=== PATIENT | male | born 1975 | race Caucasian/White ===

== ENCOUNTER 2021-01-29 20:55 | Emergency (ER) | payer OTHER ==
[~2021-01-29] VITALS: Ht 172.7 cm; Wt 78.7 kg
[2021-01-29 20:57] VITALS: BP 110/84
--- NOTE | 2021-01-29 21:07 | NUR ---
BIBSELF C/O R KNEE PAIN X3 DAYS -TRAUMA. PATIENT IS AAOX4. NO SOB. BREATHING EVENLY AND UNLABORED. AMULATORY. VSS.
[2021-01-29] MEDS ORDERED: IBUP-1955 PO (22:06)
[2021-01-29] MEDS ORDERED: IBUPROFEN 600 MG TABLET ONE (22:19)
[2021-01-29] MEDS: IBUPROFEN 600 MG TABLET PO ONE (22:29)
--- NOTE | 2021-01-29 22:29 | NUR ---
Patient provided with presciption medication. Verbalizes teaching of medication. Patient understands the acronym R.I.C.E. (rest, ice, compression, and elevate) for knee pain.
--- NOTE | 2021-01-29 22:29 | NUR ---
Patient discharged to home in stable condition. Written and verbal after care instructions given. Patient verbalizes understanding of instruction.
== END 2021-01-29 22:31 | disposition home or self-care (01) ==
LOC: ER 21:00
DX: M25.561 Pain in right knee (principal); R22.41 Localized swelling, mass and lump, right lower limb
CPT/HCPCS: 73564-TC; 93971-TC

== ENCOUNTER 2021-12-16 03:46 | Emergency (ER) | payer OTHER ==
[~2021-12-16] VITALS: Ht 172.7 cm; Wt 79.8 kg
[~2021-12-16 03:46] MED LIST: IBUP-1955 PO
--- NOTE | 2021-12-16 03:58 | NUR ---
BIBRA 889 FROM HOME FOR C/O WORSENING R KNEE PAIN AND SWELLING X 4 DAYS DENIED ANY TRAUMA, FALL OR INJURY. PATIENT ALERT AND ORIENTED X3. IN BED 09 ON MONITOR
[2021-12-16] MEDS ORDERED: KETOROLAC TROMETHAMINE INJ 30 MG/ML VIAL ONE (04:15)
--- NOTE | 2021-12-16 04:21 | NUR ---
BLOOD COLLECTED AND SENT TO LAB
[2021-12-16] MEDS ORDERED: KETOROLAC TROMETHAMINE INJ 30 MG/ML VIAL IV ONE (04:30)
[2021-12-16 04:33] LABS: BASOPHILS % (AUTO) 0.3 % (0.0-2.0); EOSINOPHILS % (AUTO) 5.5 % (0.0-6.0); HEMATOCRIT 42 % (39-51); HEMOGLOBIN 14.8 g/dL (13.5-17.5); LYMPHOCYTES # (AUTO) 1.6 K/uL (0.8-4.8); LYMPHOCYTES % (AUTO) 14.3 % (20.0-44.0); MEAN CORPUSCULAR HGB CONC 35 g/dl (31.0-36.0); MEAN CORPUSCULAR VOLUME 84 fL (80-96); MONOCYTES # (AUTO) 0.5 K/uL (0.1-1.30); MONOCYTES % (AUTO) 4.8 % (2.0-12.0); NEUTROPHILS # (AUTO) 8.5 K/uL (1.8-8.9); NEUTROPHILS % (AUTO) 75.1 % (43.0-81.0); PLATELET COUNT (AUTO) 222 K/uL (150-450); RED BLOOD CELL COUNT(AUTO) 4.99 MIL/uL (4.5-6.0); WHITE BLOOD COUNT (AUTO) 11.4 K/uL (4.3-11.0)
[2021-12-16 05:01] LABS: CALCIUM, SERUM 8.4 mg/dL (8.5-10.1); CREATININE 1.1 mg/dL (0.6-1.3); POTASSIUM 3.8 mmol/L (3.5-5.1)
[2021-12-16] MEDS ORDERED: IBUP-1957 PO (05:11)
--- NOTE | 2021-12-16 05:18 | NUR ---
6 INCH SANDIE WRAP APPLIED TO R KNEE. PMS EQUAL AND INTACT.
--- NOTE | 2021-12-16 05:23 | NUR ---
Patient discharged to home in stable condition. Written and verbal after care instructions given. Patient verbalizes understanding of instruction. IV line discontinued and 2x2 gauze applied to site without incident.
[2021-12-16 05:25] VITALS: BP 124/69
== END 2021-12-16 05:26 | disposition home or self-care (01) ==
LOC: ER 04:19
DX: M25.561 Pain in right knee (principal)
CPT/HCPCS: 36415; 73564; 80048; 84550; 85025; 96374; 99284; J1885

== ENCOUNTER 2023-06-14 21:29 | Emergency (ER) | payer BC, OTHER ==
[~2023-06-14] VITALS: Ht 172.7 cm; Wt 68.0 kg
[~2023-06-14 21:29] MED LIST changes: +IBUP-1957 PO
[2023-06-14 23:50] VITALS: TEMP 98.8
[2023-06-15] MEDS ORDERED: DIPHENHYDRAMINE HCL 12.5 MG/5 ML UDC PO ONE (00:30)
[2023-06-15] MEDS ORDERED: diphenhydrAMINE HCL ELIX 25 MG/10 ML UDC ONE (00:33)
[2023-06-15] MEDS ORDERED: IV NS 0.9% 250 ML IV ONE (00:50)
[2023-06-15] MEDS ORDERED: IOHEXOL-300 100 ML VIAL IV ONE (00:50)
[2023-06-15] MEDS ORDERED: CT SWABBABLE VALVE TRANS SET 1 EA INFUS.SET MC ONE (00:50)
[2023-06-15 00:58] LABS: BASOPHILS % (AUTO) 0.5 % (0.0-2.0); EOSINOPHILS # (AUTO) 0.2 K/uL (0.0-0.7); HEMATOCRIT 41 % (39-51); LYMPHOCYTES # (AUTO) 2.2 K/uL (0.8-4.8); LYMPHOCYTES % (AUTO) 23.3 % (20.0-44.0); MEAN CORPUSCULAR HEMOGLOBIN 29 PG (26.0-33.0); MEAN CORPUSCULAR HGB CONC 34 g/dl (31.0-36.0); MEAN CORPUSCULAR VOLUME 85 fL (80-96); MONOCYTES # (AUTO) 0.5 K/uL (0.1-1.30); MONOCYTES % (AUTO) 5.3 % (2.0-12.0); NEUTROPHILS # (AUTO) 6.5 K/uL (1.8-8.9); NEUTROPHILS % (AUTO) 68.9 % (43.0-81.0); PLATELET COUNT (AUTO) 240 K/uL (150-450); RED BLOOD CELL COUNT(AUTO) 4.81 MIL/uL (4.5-6.0); RED CELL DISTRIBUTION WIDTH 14.1 % (11.5-15.0); WHITE BLOOD COUNT (AUTO) 9.4 K/uL (4.3-11.0)
[2023-06-15 01:16] LABS: CALCIUM, SERUM 9.2 mg/dL (8.5-10.1); CREATININE 0.9 mg/dL (0.6-1.3); POTASSIUM 3.7 mmol/L (3.5-5.1)
[2023-06-15 01:20] LABS: ALBUMIN 3.8 g/dL (3.4-5.0); BILIRUBIN,DIRECT 0.1 mg/dL (0.0-0.2); BILIRUBIN,TOTAL 0.5 mg/dL (0.2-1.0); TOTAL PROTEIN, SERUM 7.3 g/dL (6.4-8.2)
[2023-06-15 01:26] LABS: INR 0.99 (0.91-1.10); PARTIAL THROMBOPLASTIN TIME 30.8 SEC (24.3-34.3); PROTHROMBIN TIME 10.4 SECS (9.2-11.1)
[2023-06-15 07:57] VITALS: BP 135/74; O2SAT 98
== END 2023-06-15 07:58 | disposition home or self-care (01) ==
LOC: ER 21:30
DX: L50.9 Urticaria, unspecified (principal); R59.0 Localized enlarged lymph nodes; M79.89 Other specified soft tissue disorders; Z79.899 Other long term (current) drug therapy
CPT/HCPCS: 99285; 93970; 70491; 85025; 80048; 80076; 36415; 85730; Q0163 ×2; J7050; Q9967